=== PATIENT | female | born 1965 | race African-American/Black ===

== ENCOUNTER 2019-12-22 08:42 | Emergency (ER) | payer BC ==
[~2019-12-22] VITALS: Ht 165.1 cm; Wt 62.6 kg
[2019-12-22 08:56] VITALS: Ht 165.1 cm; Wt 62.6 kg
[2019-12-22 10:27] VITALS: BP 122/78
== END 2019-12-22 10:27 | disposition home or self-care (01) ==
LOC: ED 08:42
DX: S52.571A Other intraarticular fracture of lower end of right radius, initial encounter for closed fracture (principal); S52.611A Displaced fracture of right ulna styloid process, initial encounter for closed fracture; V00.121A Fall from non-in-line roller-skates, initial encounter; Y93.89 Activity, other specified; Y92.89 Other specified places as the place of occurrence of the external cause; Y99.8 Other external cause status
CPT/HCPCS: Q0092